=== PATIENT | female | born 1940 | race Caucasian/White ===

== ENCOUNTER 2024-03-22 19:55 | Observation (INO) | payer MEDICARE, OTHER, SELFPAY ==
[2024-03-22] VITALS (9 sets, daily range): BP systolic 113–175; BP diastolic 59–89; BMI 28.2
--- NOTE | 2024-03-22 16:25 | ED.GENMED ---
History of Present Illness
General
Chief Complaint: Musculo-Skeletal Complaint
Source: patient
Exam Limitations: none
Time Seen by Provider: 03/22/24 15:58
Nursing documentation reviewed up to this point in time: agreed with
Travel History
Have you had any contact with someone who has COVID-19?: No
Do you have any symptoms of coronavirus? Fever > 100 degrees, chills, cough, shortness of breath, sore throat, loss of taste or smell, muscle aches, or headache?: No
History of Present Illness
History of Present Illness:
pt is a 83 y/o F with h/o parkinsons
snow birds [place], returned here a few days ago
fell while in [place], 03/12 back wards onto buttocks
went to an ER and had xrays and head ct which were neg
pt took the train back up to this area and went to PCP and got rx for motrin and methambutol
recently she seemed more weak and is having more pain and is really not able to get around. her is her primary caregiver and he has to assist her all the time to walk but she really hasn't had the energy and she has pain in both hips and
lower back
L hip > right hip
may have noticed facial drooping yesterday, but he did no tmention until i asked
no urinary symptoms (chronically wears depends), fever, vomiting, headache, cp, sob
she has had rehab before and is interested
Past History
Past History
ED Past Medical History: Cancer (Breast) and Other (Parkinson's, hiatal hernia)
ED Past Surgical History: Gynecological, Orthopedic and Other (lumpectomy w/ lymph node sx)
Social History
Tobacco: Other
Drug: None
Personal:
Living: with family
Employment: Retired
Family History
Family History: Other (n/c)
Review of Systems
Review of Systems
Allergies reviewed?: Yes
All Other Systems: Not applicable
Phy Exam
Physical Exam
Physical Exam:
GENERAL: Alert , in no apparent distress generally weak
HEAD: NCAT
EYE: pupils equal and reactive, no nystagmus, patient seems to have some lid lag on the left and does not squeeze her eyes tightly on the left
NECK: Supple,full rom, nontender
ENT: o/p clr, mmm.
CARDIAC: Regular rate and rhythm murmur present. no edema
LUNGS: Clear breath sounds bilaterally, no acute respiratory distress, no wheezes/rales/rhonchi
back: nontneder
posterior PSIS L with tenderness
ABDOMEN: Soft, without focal tenderness, no r/g, no cvat
NEUROLOGICAL: Alert and orientedx 4, flattened nasolabial fold on the right with a slight downward appearance to her corner of her mouth on the right side, left eye is minimally weak, seems to be sluggish with blinking, 5/5 strength in UE/LE,
sensation intact, romberg neg, globally weak but no focal weakness in her arms or legs, neg pronator drift
SKIN: Warm and dry, skin intact. No bruising appreciated
MUSCULOSKELETAL: No edema, well perfused.
PSYCH: Normal and appropriate interaction.
Course
Orders/Labs/Results
Orders:
Orders
03/22/24 16:17
CT Pelvis W/o Iv Contrast Urgent
Comment:
Reason For Exam: fall 03/12 b/l hip pain, neg xrays, cannot walk
03/22/24 16:19
CT Head W/o Iv Contrast Urgent
Comment:
Reason For Exam: R facial weakness, falls
Urinalysis Reflex To Culture Urgent
03/22/24 16:20
Electrocardiogram (*1) Urgent
Reason for Study: Fatigue / Weakness
EKG- Treatment ONCE
0.9% Sodium Chloride 1000 ml [Nss] 1,000 ml IV BOLUS
03/22/24 16:38
Complete Blood Count/With Diff Urgent
Comprehensive Metabolic Panel Urgent
Magnesium Urgent
TSH Reflex To Free T4 Urgent
Abnormal Lab Results
03/22/24
16:38
MCH 31.4 H pg
(27.0-31.0)
Abs Immat Gran (auto) 0.1 H 10^3/uL
(0-0.05)
Absolute Neuts (auto) 8.1 H 10^3/uL
(1.4-6.5)
Absolute Monos (auto) 1.0 H 10^3/uL
(0.1-0.6)
Immature Gran % 0.6 H %
(0-0.5)
Lymphocytes % 13.3 L %
(20.5-51.1)
Chloride 110 H mmol/L
(98-107)
BUN 26 H mg/dl
(7-17)
Alkaline Phosphatase 183 H U/L
(38-126)
03/22/24 16:38
03/22/24 16:38
Vital Signs
Initial and Last Documented VS:
Initial Vital Signs
Temp Pulse Resp BP Pulse Ox
97.7 F 79 18 113/59 94
03/22/24 14:15 03/22/24 14:15 03/22/24 14:15 03/22/24 14:15 03/22/24 14:15
Last Documented Vital Signs
Temp Pulse Resp BP Pulse Ox
97.7 F 79 30 174/71 96
03/22/24 14:15 03/22/24 18:45 03/22/24 18:45 03/22/24 18:00 03/22/24 18:45
MDM/Problems Addressed
Differential Diagnosis Includes:
fracture, weakness, sroke, dehydration, parkinsons
MDM/Problems Addressed:
83 y/o F with parkinsons
here after falling on 03/12 in [place] and having ongoing issues walking, b/l hip pain and low back pain
had xrays and were told they were negative
but she really cannot walk even close to her baseline which already requires her 's assistnace
she has no focal weakness
on exam i thought i noticed a facial droop but probably difficult to tell because of her parkinsons
her then said maybe he noticed too
she has no focal weaknes in arms or legs
her facial muscles seem somewhat weak
no midline spinal tenderness
no signs of cauda equina
she does have pain more with L hip flexion
labs apprecaited, no singinciatn findings
ct shows L4 acute compression fx
pt will likely need inpatient rehab
*Critical Care Note
Total Time (30-74mins, 75-104mins- exclusive of procedures): Not Applicable
ED Attending Note
-
Portions of this chart may have been created with voice recognition software.� Occasional wrong word or��sound alike� substitutions may have occurred due to the inherent limitations of voice recognition software.
Discharge Plan
Departure
Patient Disposition: Admit
Date of Disposition: 03/22/24
Time of Disposition: 18:22
Admit to: Med/Surg
Presentation/result/management discussed w/ accepting MD/DO: Hospitalist
Condition: Fair
Covid-19: Not Applicable
Discharge Problem:
Closed compression fracture of L4 vertebra, Ambulatory dysfunction, Dehydration
Prescriptions:
No Action
calcium carbonate [Oyster Shell Calcium 500] 500 MG tablet
1 tab PO DAILY
coenzyme Q10 [Co Q-10] 100 mg Capsule
100 mg PO DAILY Qty: 0
multivitamin with folic acid [Tab-A-Avelino] 1 TABLET tablet
1 tab PO DAILY
carbidopa-levodopa 25-100 mg tablet
1 tab PO Q4
cholecalciferol (vitamin D3) [Vitamin D3] 25 mcg (1,000 unit) Tablet
25 mcg PO DAILY
[place] 3 Fish Oil 948-1,200 mg Capsule,Delayed Release(Dr/Ec)
1 cap PO DAILY
magnesium glycinate 100 mg Tablet
100 mg PO DAILY
Curcumin
1 tab PO DAILY
glutathione
1 tab PO DAILY
Referrals:
Irma Galicia MD [Family Provider] -
Interventions
Interventions:
*Risk Screen - Suicide Last Done: 03/22/24 14:15
*General Assessment Last Done: 03/22/24 14:15
*Neglect/Abuse Screening Last Done: 03/22/24 14:15
*ED COVID-19 Vaccine History Last Done: 03/22/24 14:15
ED-Musculoskeletal Assessment Last Done: 03/22/24 14:17
Discharge Date and Time
Print Language: MACANESE
[2024-03-22] MEDS: NSS 1000 IV (16:39)
[2024-03-22 16:49] LABS: % Basophils 0.4 % (0-2); % Eosinophils 1.9 % (0-6); % Immature Granulocytes 0.6 % (0-0.5); % Lymphocytes 13.3 % (20.5-51.1); % Monocytes 9.1 % (1.7-9.3); % Neutrophils 74.7 % (42.2-75.2); Absolute Eosinophils 0.2 10^3/uL (0-0.7); Absolute Immature Granulocytes 0.1 10^3/uL (0-0.05); Absolute Lymphocytes 1.4 10^3/uL (1.2-3.4); Absolute Neutrophils 8.1 10^3/uL (1.4-6.5); Hematocrit 42.6 % (37.0-47.0); Hemoglobin 14.6 g/dL (12.0-16.0); Mean Corp Hgb Conc. 34.3 g/dL (33.0-37.0); Mean Corpuscular Hgb 31.4 pg (27.0-31.0); Mean Corpuscular Volume 91.6 fL (81.0-99.0); Mean Platelet Volume 9.3 fL (7.4-10.4); Nucleated Red Blood Cells % 0 %; Platelet Count 270 10^3/uL (130-400); Red Blood Cell Count 4.65 10^6/uL (4.20-5.40); Red Cell Dist. Width 13.4 % (11.5-14.5); White Blood Cell Count 10.8 10^3/uL (4.8-10.8)
[2024-03-22 17:09] LABS: ALT (SGPT) < 10 U/L (0-35); AST (SGOT) 24 U/L (14-36); Alkaline Phosphatase 183 U/L (38-126); Blood Urea Nitrogen 26 mg/dl (7-17); Carbon Dioxide 24 mmol/L (22-30); Chloride 110 mmol/L (98-107); Estimated Creatinine Clearance 50 ml/min; Glucose 94 mg/dl (70-99); Magnesium 2.3 mg/dl (1.6-2.3); Potassium 4.1 mmol/L (3.5-5.1); Sodium 141 mmol/L (135-145); Total Bilirubin 0.6 mg/dl (0.2-1.3); Total Protein 6.6 g/dl (6.3-8.2); eGFR > 60.00
[2024-03-22 17:38] LABS: TSH Reflex To Free T4 0.77 uIU/ml (0.47-4.68)
--- NOTE | 2024-03-22 18:44 | HPS.HSE ---
Addendum entered and electronically signed by Julian Palmer DO 03/22/24 20:51:
Patient seen and examined independently. Agree with findings and plan as set forth by WILIAM Syed.
Patient is an 83y F with PMH significant for Parkinson's disease, hyperparathyroidism and breast cancer who presents to ED complaining of low back and buttocks pain and worsening gait dysfunction. Patient states that she had a fall on 03/12 while
in [place]. She went to sit on her walker chair but missed and 'sat down hard' on the floor. No head injury, LOC, suspicious prodrome, etc. Patient has had persistent pain since that time. Her has used a wheelchair for her locomotion
since that time as he was concerned she would fall again. At baseline, she ambulates with a walker.
Today, patient went to see her PCP but was unable to get into the office due to lower extremity weakness. EMS was called and patient was brought to the ED for evaluation.
Work-up in the ED revealed acute L4 compression fracture.
Ass:
L4 Compression Fracture s/p Fall
Low Back Pain secondary to the above
Ambulatory Dysfunction - acute on chronic - secondary to the above
Parkinson's Disease
Hyperparathyroidism
Osteoporosis
Plan:
Observe overnight for further evaluation and treatment.
Continue efforts at adequate pain control.
PT / OT evals in the AM.
Could consider vertebroplasty if pain is unable to be controlled.
Continue outpatient med regimen including usual Sinemet dosing.
Follow for clinical improvement.
Original Note:
Family Physician
-
Family Physician: Irma Galicia
Chief Complaint
-
fall with buttocks pain
History of Present Illness
83 year old with PMH for right breast ca, hld, Parkinson disease, hyperparathyroidism, macular degeneration presented to us with b/l buttocks pain after fall on 03/12.she missed the walker in the bathroom and fell on her right buttocks. she did not
hit her head. since then she has bilateral buttocks pain. she was evaluated in the ER. workups were negative for any fracture, she was sent home on muscle relaxant. they travelled from [place] to [place] via train on 03/18. her pain got worse and noted
very weak. today they were going to see her PCP, she could not get to the car. she could not lift her leg up due to the pain. her called 911 and brought to the ER. patient denied [place],dizzy or syncopal episode. denied fever, chills, chest
pain, sob. denied abdominal pain,n,v,d. denied dysuria or hematuria.
CT lumbar with Compression fracture involving the L4 vertebral body, and morphologically, this is likely an acute fracture. Slight retropulsion of the posterior and superior aspect of the L4 vertebral body, extending into the spinal canal. received
normal saline in ER. admitting for further management.
Medical History
Past Medical History
Past Medical History: Reports Other
Additional Past Medical History:
Right breast cancer
Thyroid nodule
Hyperlipidemia
Hearing loss
Vitamin D deficiency
Osteoporosis
Parkinson disease
Hyperparathyroidism
macular degeneration
Hiatal hernia
Past Surgical History: Reports Other
Additional Past Surgical History:
Right breast lumpectomy
Tone left rotator cuff
Left ovary removed
Social History
Tobacco: Non-smoker
Alcohol: None
Drug: None
Personal:
Living: With Family
Family History
Family History: Not pertinent
Allergies / Home Medications
Allergies reflects when Allergies were last updated in [employer].
Home Medications with original date entered in [employer]
Allergy/Medication List:
Allergies
Allergy/AdvReac Type Severity Reaction Status Date / Time
amoxicillin [Amoxicillin] Allergy Rash Verified 10/14/21 16:32
amoxicillin trihydrate Allergy Rash Verified 10/14/21 16:32
[From Augmentin]
clavulanic acid Allergy Rash Verified 10/14/21 16:32
[From Augmentin]
doxycycline Allergy Rash, sun Verified 10/14/21 16:32
sensitivity,
thrush,
erythromycin base Allergy Unknown Verified 10/14/21 16:32
levofloxacin Allergy Unknown Verified 10/14/21 16:32
Home Medications
calcium carbonate (Oyster Shell Calcium 500) 1 tab PO DAILY Supplement 10/14/21
coenzyme Q10 100 mg capsule (Co Q-10) 100 mg PO DAILY Supplement ##0 10/14/21
multivitamin with folic acid 400 mcg tablet (Tab-A-Avelino) 1 tab PO DAILY Supplement 10/14/21
Curcumin 1 tab PO DAILY 03/22/24
carbidopa 25 mg-levodopa 100 mg tablet 1 tab PO Q4 03/22/24
cholecalciferol (vitamin D3) 25 mcg (1,000 unit) tablet (Vitamin D3) 25 mcg PO DAILY 03/22/24
glutathione 1 tab PO DAILY 03/22/24
magnesium glycinate 100 mg tablet 100 mg PO DAILY 03/22/24
omega-3 fatty acids-fish oil 684 mg-1,200 mg capsule,delayed release 1 cap PO DAILY 03/22/24
Review of Systems
-
Constitutional: Reports No Symptoms
EENT: Reports No Symptoms
Respiratory: Reports No Symptoms
Cardiac: Reports No Symptoms
Abdomen/GI: Reports No Symptoms
: Reports No Symptoms
Musculoskeletal: Reports Other (Bilateral buttocks pain)
Skin: Reports No Symptoms
Neurological: Reports No Symptoms
Endocrine: Reports No Symptoms
Hematologic/Lymphatic: Reports No Symptoms
Psych: Reports No Symptoms
Physical Exam
Vital Signs
Vital Signs
Temp Pulse Resp BP Pulse Ox
97.7 F 79 18 113/59 94
03/22/24 14:15 03/22/24 14:15 03/22/24 14:15 03/22/24 14:15 03/22/24 14:15
Physical Exam
General: Well Developed, Well Nourished and No Apparent Distress
HEENT: NormoCephalic, Moist mucous membranes and Atraumatic
Respiratory: Clear
Cardiac: S1/S2 and Regular Rhythm; No Murmur or Rub
GI: Soft, Non Tender, Non Distended and Normal Bowel Sounds; No Organomegaly
Rectal: Deferred by Provider
Musculoskeletal: No Clubbing, No Cyanosis and No Edema
Skin: No Rash
Neuro: AO x 3 and Nonfocal/grossly intact
Psych: Calm
Laboratory Results
-
03/22/24 16:38
03/22/24 16:38
Laboratory Results
Total Bilirubin 0.6 mg/dl (0.2-1.3) 03/22/24 16:38
AST 24 U/L (14-36) 03/22/24 16:38
ALT < 10 U/L (0-35) 03/22/24 16:38
Alkaline Phosphatase 183 U/L (38-126) H 03/22/24 16:38
Data Reviewed
-
CT Scan: Report Reviewed by me
Lab Data: Labs Reviewed by me
Impression/Plan
-
# Lower back and hip pain likely from acute L4 compression fracture
-CT head negative
-Pelvis CT with impression of Compression fracture involving the L4 vertebral body, and morphologically, this is likely an acute fracture. Slight retropulsion of the posterior and superior aspect of the L4 vertebral body, extending into the spinal
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 Given this limitation, no convincing evidence for additional fracture.
-lidocaine patch
-tramadol prn for pain
-PT/OT consult
#Parkinson's Disease
-Carbidopa levodopa continued
#DVT Prophylaxis: Lovenox
#Code Status: Full
[2024-03-22] MEDS: SINEMET 25-100 1 TABLET PO (21:46)
[2024-03-22] MEDS: LIDOCAINE 4% PATCH 1 PATCH TOPICAL (21:47)
[2024-03-23] MEDS: SINEMET 25-100 1 TABLET PO ×5 (01:08→21:24)
[2024-03-23 01:33] LABS: Urine Albumin Negative (Neg - Trace); Urine Bilirubin Negative (Negative); Urine Character Clear (Clear); Urine Color Yellow; Urine Glucose Negative (Negative); Urine Ketone Trace (Negative); Urine Leukocyte 1+ (Negative); Urine Nitrite Negative (Negative); Urine Occult Blood Negative (Negative); Urine Specific Gravity 1.015 (<1.030); Urine Urobilinogen Negative (Neg - 1+)
[2024-03-23 02:01] LABS: Urine Bacteria Many (Negative); Urine White Cell 16-20 /HPF (0-5)
[2024-03-23] MEDS: TYLENOL 650 MG PO ×2 (02:51→08:00)
[2024-03-23] MEDS: SINEMET 25-100 PO ×2 (04:31→23:41)
[2024-03-23 06:45] LABS: Hemoglobin 13.3 g/dL (12.0-16.0); Mean Corp Hgb Conc. 34.1 g/dL (33.0-37.0); Mean Corpuscular Hgb 32.2 pg (27.0-31.0); Mean Corpuscular Volume 94.4 fL (81.0-99.0); Mean Platelet Volume 9.7 fL (7.4-10.4); Platelet Count 224 10^3/uL (130-400); Red Blood Cell Count 4.13 10^6/uL (4.20-5.40); Red Cell Dist. Width 13.3 % (11.5-14.5); White Blood Cell Count 7.8 10^3/uL (4.8-10.8)
[2024-03-23 07:00] VITALS: BP 150/76
[2024-03-23 07:11] LABS: Blood Urea Nitrogen 19 mg/dl (7-17); Calcium 9.3 mg/dl (8.4-10.2); Carbon Dioxide 24 mmol/L (22-30); Chloride 113 mmol/L (98-107); Estimated Creatinine Clearance 57 ml/min; Glucose 93 mg/dl (70-99); Potassium 3.9 mmol/L (3.5-5.1); Sodium 142 mmol/L (135-145); eGFR > 60.00
--- NOTE | 2024-03-23 08:34 | W.PN.HOSP.TC ---
Today's Communication/Plan
-
Continue pain control. PT OT eval
Assessment / Plan
Assessment / Plan
Physical Exam
General: Appears chronically ill
HEENT: NormoCephalic, Moist mucous membranes and Atraumatic
Respiratory: Clear
Cardiac: S1/S2 and Regular Rhythm; No Murmur or Rub
GI: Soft, Non Tender, Non Distended and Normal Bowel Sounds; No Organomegaly
Rectal: Deferred by Provider
Musculoskeletal: Tenderness in the lumbar area. Decreased range of motion of the back. No Clubbing, No Cyanosis and No Edema
Skin: No Rash
Neuro: AO x 3 and Nonfocal/grossly intact
Psych: Calm
A/P:
# Lower back and hip pain likely from acute L4 compression fracture
-CT head negative
-Pelvis CT with impression of Compression fracture involving the L4 vertebral body, and morphologically, this is likely an acute fracture. Slight retropulsion of the posterior and superior aspect of the L4 vertebral body, extending into the spinal
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 Given this limitation, no convincing evidence for additional fracture.
-lidocaine patch
-tramadol prn for pain
-PT/OT consult
#Parkinson's Disease
-Carbidopa levodopa continued
#DVT Prophylaxis: Lovenox
#Code Status: Full
Anticipated Discharge: 24 - 48 hours
Subjective/Interval History
-
Date of Service: March 23, 2024
Patient proceeded to have back pain. She states pain is moderate and does have some relief with pain medications. Has not been able to ambulate much yet. No chest pain or shortness of breath. No fevers or chills. No bowel or bladder
incontinence.
Objective Data
-
Labs:
Laboratory Results
03/23/24
06:23
WBC 7.8
Hgb 13.3
Hct 39.0
Plt Count 224
Sodium 142
Potassium 3.9
Chloride 113 H
Carbon Dioxide 24
BUN 19 H
Creatinine 0.7
Glucose 93
Calcium 9.3
Vital Signs:
Vital Signs
Temp Pulse Resp BP Pulse Ox
97.4 F 73 18 150/76 95
03/23/24 07:00 03/23/24 07:00 03/23/24 07:00 03/23/24 07:00 03/23/24 07:00
Review of Systems
-
All other systems: Reviewed and negative
[2024-03-23 10:29] VITALS: BP 106/54; BP 95/56; PULSE 87
[2024-03-23 14:51] VITALS: BP 122/68
--- NOTE | 2024-03-23 15:46 | CM ---
CM met with pt bedside
Pt resides with her spouse in a 2SH with 4STE, 1st floor setup
Pt is independent with ambulation, transfers and toileting with use if a rollator
Spouse assists with dressing and bathing as needed
PCP- Irma Galicia
Rx- [facility]
Pt is OBS- [place] verbally reviewed
Copy provided
SNF recommended by therapy
PAC provided- pt does not have qualifying stay
Pt requesting referral to [facility] acute rehab
Referral sent and pending
Pt does not qualify for [employer] waiver per Tonya- not in participating ACO
Discharge Disposition- SNF private pay vs [facility] acute rehab
[2024-03-23] MEDS: LIDOCAINE 4% PATCH 1 PATCH TOPICAL (21:24)
[2024-03-23 23:20] VITALS: BP 134/67
[2024-03-24] MEDS: SINEMET 25-100 1 TABLET PO ×5 (02:51→20:17)
[2024-03-24] MEDS: TYLENOL 650 MG PO ×2 (02:51→08:07)
[2024-03-24 07:19] LABS: Hematocrit 38.3 % (37.0-47.0); Hemoglobin 13.2 g/dL (12.0-16.0); Mean Corp Hgb Conc. 34.5 g/dL (33.0-37.0); Mean Corpuscular Hgb 31.7 pg (27.0-31.0); Mean Corpuscular Volume 92.1 fL (81.0-99.0); Mean Platelet Volume 9.5 fL (7.4-10.4); Platelet Count 238 10^3/uL (130-400); Red Blood Cell Count 4.16 10^6/uL (4.20-5.40); Red Cell Dist. Width 13.2 % (11.5-14.5); White Blood Cell Count 8.4 10^3/uL (4.8-10.8)
[2024-03-24 07:46] LABS: Blood Urea Nitrogen 19 mg/dl (7-17); Calcium 9.1 mg/dl (8.4-10.2); Carbon Dioxide 25 mmol/L (22-30); Chloride 110 mmol/L (98-107); Estimated Creatinine Clearance 57 ml/min; Glucose 93 mg/dl (70-99); Sodium 137 mmol/L (135-145); eGFR > 60.00
[2024-03-24 07:56] VITALS: BP 154/71
--- NOTE | 2024-03-24 09:26 | W.PN.HOSP.TC ---
Today's Communication/Plan
-
Continue current management. PT OT/CM
Assessment / Plan
Assessment / Plan
Physical Exam
General: Appears chronically ill
HEENT: NormoCephalic, Moist mucous membranes and Atraumatic
Respiratory: Clear
Cardiac: S1/S2 and Regular Rhythm; No Murmur or Rub
GI: Soft, Non Tender, Non Distended and Normal Bowel Sounds; No Organomegaly
Rectal: Deferred by Provider
Musculoskeletal: Tenderness in the lumbar area. Decreased range of motion of the back. No Clubbing, No Cyanosis and No Edema
Skin: No Rash
Neuro: AO x 3 and Nonfocal/grossly intact
Psych: Calm
A/P:
# Lower back and hip pain likely from acute L4 compression fracture
-CT head negative
-Pelvis CT with impression of Compression fracture involving the L4 vertebral body, and morphologically, this is likely an acute fracture. Slight retropulsion of the posterior and superior aspect of the L4 vertebral body, extending into the spinal
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 Given this limitation, no convincing evidence for additional fracture.
-lidocaine patch
-tramadol prn for pain--> needs to reevaluate if this is enough or we need to upgrade stronger medication
-PT/OT consult
-Case management for discharge disposition
-Updated at bedside
#Parkinson's Disease
-Carbidopa levodopa continued
#DVT Prophylaxis: Lovenox
#Code Status: Full
Anticipated Discharge: 24 - 48 hours
Subjective/Interval History
-
Date of Service: March 24, 2024
Patient still with some pain in the back. Afebrile
Objective Data
-
Labs:
Laboratory Results
03/24/24
06:44
WBC 8.4
Hgb 13.2
Hct 38.3
Plt Count 238
Sodium 137
Potassium 4.0
Chloride 110 H
Carbon Dioxide 25
BUN 19 H
Creatinine 0.7
Glucose 93
Calcium 9.1
Vital Signs:
Vital Signs
Temp Pulse Resp BP Pulse Ox
97.8 F 67 18 154/71 95
03/24/24 07:56 03/24/24 07:56 03/24/24 07:56 03/24/24 07:56 03/24/24 07:56
I&O
03/23/24 03/24/24 03/25/24
06:59 06:59 06:59
Intake Total 360 / 360
Output Total 200 / 200
Balance 160 / 160
[2024-03-24] MEDS: OCUVITE SOFTGEL 1 CAP PO ×2 (12:43→20:17)
[2024-03-24 15:39] VITALS: BP 148/76
[2024-03-24 16:07] VITALS: BP 141/65; BP 148/76; PULSE 84; O2SAT 93
[2024-03-24] MEDS: ULTRAM 100 MG PO (16:30)
[2024-03-24] MEDS: LIDOCAINE 4% PATCH 1 PATCH TOPICAL (20:18)
[2024-03-24 23:25] VITALS: BP 115/65
[2024-03-24] MEDS: SINEMET 25-100 PO (23:40)
[2024-03-25] MEDS: SINEMET 25-100 PO (04:42)
[2024-03-25] MEDS: SINEMET 25-100 1 TABLET PO ×5 (07:27→22:44)
[2024-03-25] MEDS: OCUVITE SOFTGEL 1 CAP PO ×2 (07:27→20:22)
[2024-03-25] MEDS: ULTRAM 100 MG PO (07:32)
[2024-03-25 07:58] VITALS: BP 151/81
--- NOTE | 2024-03-25 08:41 | W.PN.HOSP.TC ---
Today's Communication/Plan
-
Pain control. PT OT
Assessment / Plan
Assessment / Plan
Physical Exam
General: Appears chronically ill
HEENT: NormoCephalic, Moist mucous membranes and Atraumatic
Respiratory: Clear
Cardiac: S1/S2 and Regular Rhythm; No Murmur or Rub
GI: Soft, Non Tender, Non Distended and Normal Bowel Sounds; No Organomegaly
Rectal: Deferred by Provider
Musculoskeletal: Tenderness in the lumbar area. Decreased range of motion of the back. No Clubbing, No Cyanosis and No Edema
Skin: No Rash
Neuro: AO x 3 and Nonfocal/grossly intact. Increased tonicity on exam.
Psych: Calm
A/P:
# Lower back and hip pain likely from acute L4 compression fracture
-CT head negative
-Pelvis CT with impression of Compression fracture involving the L4 vertebral body, and morphologically, this is likely an acute fracture. Slight retropulsion of the posterior and superior aspect of the L4 vertebral body, extending into the spinal
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 Given this limitation, no convincing evidence for additional fracture.
-lidocaine patch
-tramadol prn for pain--> needs to reevaluate if this is enough or we need to upgrade stronger medication
-PT/OT consult
-Case management for discharge disposition
-Updated at bedside
#Parkinson's Disease
-Carbidopa levodopa continued
#DVT Prophylaxis: Lovenox
#Code Status: Full
Anticipated Discharge: 24 - 48 hours
Subjective/Interval History
-
Date of Service: March 25, 2024
Patient still with back pain but responds to pain medications, patient with generalized weakness and increased stiffness. No chest pain or shortness of breath. Afebrile
Objective Data
-
Vital Signs:
Vital Signs
Temp Pulse Resp BP Pulse Ox
97.5 F 79 16 151/81 94
03/25/24 07:58 03/25/24 07:58 03/25/24 07:58 03/25/24 07:58 03/25/24 07:58
I&O
03/24/24 03/25/24 03/26/24
06:59 06:59 06:59
Intake Total 360 / 360 900 / 900 240 / 240
Output Total 200 / 200
Balance 160 / 160 900 / 900 240 / 240
--- NOTE | 2024-03-25 09:54 | CM ---
Addendum entered by GENIA Chadwick 03/25/24 14:48:
Reviewed chart again, patient observation and will not have a 3 night qualifying stay through Medicare. Will send referrals to SNF and one to [facility] in the event that [facility] can't accommodate patient. If patient opts for SNF will need to privately
pay. Will provide explanation to patient regarding obs status.
Addendum entered by GENIA Chadwick 03/25/24 14:43:
Met with patient at her request. She stated that she would like to go to SNF as soon as possible. She was agreeable to referrals being sent to: [facility], [facility], [facility], [facility], [facility] and
[facility]. Will fax referrals through [employer].
Original Note:
Received call from admissions (Caroline) at [facility] who stated that she is in the process of reviewing patient's referral to determine if her facility can accept patient.
Plan: Case management will continue to follow and assist with discharge planning. Patient would like acute rehab at [facility]. Will await determination.
[2024-03-25 10:01] VITALS: BP 132/78; BP 136/70; O2SAT 93
[2024-03-25 10:02] VITALS: BP 132/78; BP 136/70
[2024-03-25 15:30] VITALS: BP 131/81
[2024-03-25] MEDS: LIDOCAINE 4% PATCH 1 PATCH TOPICAL (20:22)
[2024-03-25] MEDS: TUMS 1 TABLET PO (21:20)
[2024-03-25] MEDS: TYLENOL 650 MG PO (22:44)
[2024-03-25 23:30] VITALS: BP 116/55
[2024-03-26] MEDS: SINEMET 25-100 1 TABLET PO ×6 (05:19→23:02)
[2024-03-26] MEDS: TYLENOL 650 MG PO ×2 (07:42→20:25)
[2024-03-26] MEDS: OCUVITE SOFTGEL 1 CAP PO ×2 (07:43→19:55)
[2024-03-26 07:54] VITALS: BP 158/64
--- NOTE | 2024-03-26 08:54 | W.PN.HOSP.TC ---
Today's Communication/Plan
-
Continue pain control. PT OT. Discharge planning in progress
Assessment / Plan
Assessment / Plan
Physical Exam
General: Appears chronically ill
HEENT: NormoCephalic, Moist mucous membranes and Atraumatic
Respiratory: Clear
Cardiac: S1/S2 and Regular Rhythm; No Murmur or Rub
GI: Soft, Non Tender, Non Distended and Normal Bowel Sounds; No Organomegaly
Rectal: Deferred by Provider
Musculoskeletal: Tenderness in the lumbar area. Decreased range of motion of the back. No Clubbing, No Cyanosis and No Edema
Skin: No Rash
Neuro: AO x 3 and Nonfocal/grossly intact. Increased tonicity on exam.
Psych: Calm
A/P:
# Lower back and hip pain likely from acute L4 compression fracture
-CT head negative
-Pelvis CT with impression of Compression fracture involving the L4 vertebral body, and morphologically, this is likely an acute fracture. Slight retropulsion of the posterior and superior aspect of the L4 vertebral body, extending into the spinal
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 Given this limitation, no convincing evidence for additional fracture.
-lidocaine patch
-tramadol prn for pain--> needs to reevaluate if this is enough or we need to upgrade stronger medication
-PT/OT consult
-Case management for discharge disposition
-Updated at bedside
#Parkinson's Disease
-Carbidopa levodopa continued
#DVT Prophylaxis: Lovenox
#Code Status: Full
Anticipated Discharge: 24 - 48 hours
Subjective/Interval History
-
Date of Service: March 26, 2024
Patient pain in the back improving. No chest pain or shortness of breath. Afebrile
Objective Data
-
Vital Signs:
Vital Signs
Temp Pulse Resp BP Pulse Ox
97.9 F 72 18 158/64 93
03/26/24 07:54 03/26/24 07:54 03/26/24 07:54 03/26/24 07:54 03/26/24 07:54
I&O
03/25/24 03/26/24 03/27/24
06:59 06:59 06:59
Intake Total 900 / 900 240 / 240
Balance 900 / 900 240 / 240
--- NOTE | 2024-03-26 12:09 | CM ---
Chart reviewed. Patient not yet stable for discharge. SNF and Acute Rehab referrals pending. Patient will need to pay privately for SNF if unable to go to acute rehab due to OBS status. CM to follow.
[2024-03-26 12:24] VITALS: BP 129/51
[2024-03-26 15:52] VITALS: BP 146/61; PULSE 81; O2SAT 95
[2024-03-26 16:18] VITALS: BP 146/61
[2024-03-26] MEDS: LIDOCAINE 4% PATCH 1 PATCH TOPICAL (19:55)
[2024-03-26] MEDS: TUMS 1 TABLET PO (20:25)
[2024-03-26 23:00] VITALS: BP 109/55
[2024-03-27] MEDS: SINEMET 25-100 1 TABLET PO ×6 (03:56→23:22)
[2024-03-27] MEDS: TYLENOL 650 MG PO ×4 (04:47→20:11)
[2024-03-27 07:51] VITALS: BP 133/71
[2024-03-27] MEDS: OCUVITE SOFTGEL 1 CAP PO ×2 (08:48→20:11)
--- NOTE | 2024-03-27 09:01 | W.PN.HOSP.TC ---
Today's Communication/Plan
-
Pain control. Discharge planning in progress. systems project manager for discharge disposition.
Assessment / Plan
Assessment / Plan
Physical Exam
General: Appears chronically ill
HEENT: NormoCephalic, Moist mucous membranes and Atraumatic
Respiratory: Clear
Cardiac: S1/S2 and Regular Rhythm; No Murmur or Rub
GI: Soft, Non Tender, Non Distended and Normal Bowel Sounds; No Organomegaly
Rectal: Deferred by Provider
Musculoskeletal: Tenderness in the lumbar area improving. Decreased range of motion of the back. No Clubbing, No Cyanosis and No Edema
Skin: No Rash
Neuro: AO x 3 and Nonfocal/grossly intact. Increased tonicity on exam.
Psych: Calm
A/P:
# Lower back and hip pain likely from acute L4 compression fracture
-CT head negative
-Pelvis CT with impression of Compression fracture involving the L4 vertebral body, and morphologically, this is likely an acute fracture. Slight retropulsion of the posterior and superior aspect of the L4 vertebral body, extending into the spinal
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 Given this limitation, no convincing evidence for additional fracture.
-Continue lidocaine patch and acetaminophen
-tramadol prn for pain seems to be working
-PT/OT recommend skilled rehab
-Medically stable for discharge. Discussed with RN.
-Case management for discharge disposition
-Updated at bedside prior
#Parkinson's Disease
-Carbidopa levodopa continued
#DVT Prophylaxis: Lovenox
#Code Status: Full
Anticipated Discharge: 24 - 48 hours
Subjective/Interval History
-
Date of Service: March 27, 2024
Patient's back pain continues to improve. She is deconditioned and with generalized weakness. No chest pain or shortness of breath. Afebrile
Objective Data
-
Vital Signs:
Vital Signs
Temp Pulse Resp BP Pulse Ox
97.5 F 64 18 133/71 95
03/27/24 07:51 03/27/24 07:51 03/27/24 07:51 03/27/24 07:51 03/27/24 07:51
I&O
03/26/24 03/27/24 03/28/24
06:59 06:59 06:59
Intake Total 240 / 240 360 / 360
Balance 240 / 240 360 / 360
[2024-03-27] MEDS: MIRALAX 17 GRAMS PO (10:53)
[2024-03-27 12:14] VITALS: BP 137/72; PULSE 90; O2SAT 100
[2024-03-27 15:49] VITALS: BP 117/54
[2024-03-27] MEDS: LIDOCAINE 4% PATCH 1 PATCH TOPICAL (20:11)
[2024-03-27] MEDS: TUMS 1 TABLET PO (21:29)
[2024-03-27 22:55] VITALS: BP 136/67
[2024-03-28] MEDS: TYLENOL 650 MG PO ×4 (02:00→16:23)
[2024-03-28] MEDS: SINEMET 25-100 1 TABLET PO ×4 (04:51→16:22)
[2024-03-28] MEDS: ANESTHETIC LOZENGE 1 LOZENGE PO (05:40)
[2024-03-28 07:00] VITALS: BP 132/66
[2024-03-28] MEDS: OCUVITE SOFTGEL 1 CAP PO (08:22)
[2024-03-28 11:32] VITALS: BP 158/69; PULSE 97
[2024-03-28 11:33] VITALS: BP 158/69; PULSE 97
--- NOTE | 2024-03-28 12:49 | W.PN.HOSP.TC ---
Addendum entered and electronically signed by Mari Feldman MD 03/28/24 15:16:
total DC time 35 min
Original Note:
Today's Communication/Plan
-
see A/P
Assessment / Plan
Assessment / Plan
A/P:
# Lower back and hip pain likely from acute L4 compression fracture
CT head negative
Pelvis CT with impression of Compression fracture involving the L4 vertebral body, likely an acute fracture. Slight retropulsion of the posterior and superior aspect of the L4 vertebral body, extending into the spinal canal. Streak artifact from
bilateral hip replacements limits evaluation of the hips and inferior pelvic bones particularly. Given this limitation, no convincing evidence for additional fracture.
Continue lidocaine patch and acetaminophen
tramadol prn for pain seems to be working
PT/OT recommend skilled rehab
Medically stable for discharge. Discussed with RN.
Case management for discharge disposition
Updated at bedside prior
# Parkinson's Disease
Carbidopa levodopa continued
DVT Prophylaxis: Lovenox SQ
Code Status: Full
Anticipated Discharge: Within 24 hours
Subjective/Interval History
-
Date of Service: March 28, 2024
Objective Data
-
Vital Signs:
Vital Signs
Temp Pulse Resp BP Pulse Ox
36.4 C 66 18 132/66 93
03/28/24 07:00 03/28/24 07:00 03/28/24 07:00 03/28/24 07:00 03/28/24 07:00
I&O
03/27/24 03/28/24 03/29/24
06:59 06:59 06:59
Intake Total 360 / 360 400 / 400
Balance 360 / 360 400 / 400
Review of Systems
-
All other systems: Reviewed and negative
Physical Exam
-
General: Well Developed, Well Nourished, No Apparent Distress, Comfortable, Conversant and Appears Chronically Ill; Negative Respiratory Distress
HEENT: Normocephalic, Atraumatic, Nose Appears Normal and Ears Appear Normal; Negative Oxygen
Respiratory: Clear to Auscultation and Non Labored Respirations; Negative Accessory Resp Muscle Use
Cardiac: Regular Rhythm and S1/S2
GI: Soft, Nontender, Nondistended and Normal Bowel Sounds
Skin: Warm and Dry
Neuro: Awake, Alert and Other (parkinson's disease)
Psych: Calm
Data Reviewed
-
Labs: Labs Reviewed by me
--- NOTE | 2024-03-28 13:18 | CM ---
Addendum entered by Charmaine Bustamante 03/28/24 15:13:
This CM assisting with dc planning
Bed available at [facility] today
Bedside update to pt and call to to spouse with update
Pt remains OBS- no IMM issued
Discharge Disposition- [facility]
[phone] (p) [phone] (f)
Original Note:
Reviewed chart, placed a call to Guillermina at [facility] in admissions who reviewed patient and stated that she would be able to take her. She stated that she will call back with availability for today.
Plan: Case management will continue to follow and assist with discharge planning. [facility]. Will await return call from Guillermina.
[2024-03-28 15:00] VITALS: BP 137/80
--- NOTE | 2024-03-28 15:12 | W.DCSUMMARY ---
Discharge Summary
Discharge Data
Date of Admission: 03/22/24
Date of Discharge: 03/28/24
-
Pending Results: No
Hospital Course
Principal Diagnosis:
Lower back and hip pain due to acute L4 compression fracture.
Chronic Diagnoses:�
Parkinson's Disease on Carbidopa levodopa
hyperparathyroidism
breast cancer
Consultations:�
None
Procedures:�
None
Clinical course:�
This is a 83-year-old female, with past medical history as stated above, who presented with lower back pain that is worse with ambulation. Patient stated that she had a fall on 03/12 while in [place].
Problem 1:
Lower back and hip pain due to acute L4 compression fracture.
Her pain was much improved following tramadol, which she had not required for several days during her hospital stay.
She can continue with lidocaine patch and acetaminophen as needed for pain control going forward.
She was discharged to [facility] per PT OT recommendation.
As for the rest of her medical problems, they were stable during her hospital stay.
Discharge Plan
-
Patient Disposition: Acute Rehab Facility
Discharge Diagnosis/Procedures: Lower back and hip pain likely from acute L4 compression fracture; Parkinson's Disease
Condition: Fair
Diet: As tolerated
Activity: As tolerated
Driving Restrictions: No driving
Referrals:
Irma Galicia MD [Family Provider] - in less than 1 week
Additional Discharge Medication Instructions: Continue Tylenol and lidocaine patch for pain control
Prescriptions:
New
acetaminophen 325 mg Tablet
650 mg PO Q4HPRN PRN (Reason: mild pain/[place]/temp> 100.4F) Qty: 30 0RF
lidocaine 4 % Adhesive Patch,Medicated
1 patch topical DAILY@2200 Qty: 30 0RF
Continued
calcium carbonate [Oyster Shell Calcium 500] 500 MG tablet
1 tab PO DAILY
coenzyme Q10 [Co Q-10] 100 mg Capsule
100 mg PO DAILY Qty: 0
multivitamin with folic acid [Tab-A-Avelino] 1 TABLET tablet
1 tab PO DAILY
carbidopa-levodopa 25-100 mg tablet
1 tab PO Q4
cholecalciferol (vitamin D3) [Vitamin D3] 25 mcg (1,000 unit) Tablet
25 mcg PO DAILY
omega-3 fatty acids-fish oil 684-1,200 mg Capsule,Delayed Release(Dr/Ec)
1 cap PO DAILY
magnesium glycinate 100 mg Tablet
100 mg PO DAILY
Curcumin
1 tab PO DAILY
glutathione
1 tab PO DAILY
PreserVision AREDS-2 250-90-40-1 mg Capsule
1 tab PO BID
Discharge Orders:
Discharge Patient (As Directed); Ordered 03/28/24
Ordered By: Mari Feldman
Discharge Date and Time
Print Language: JAPANESE
== END 2024-03-28 18:23 ==
LOC: 3 WEST ACU 19:55
PROVIDERS: Hospitalist; Physician Assistant; Registered Nurse; ADMITTING PHYSICIAN Hospitalist; ATTENDING PHYSICIAN Internal Medicine; EMERGENCY PHYSICIAN Emergency Medicine; FAMILY PHYSICIAN Internal Medicine Endocrinology, Diabetes & Metabolism
DX: M54.50 Low back pain, unspecified (principal); R53.1 Weakness; M25.551 Pain in right hip; M25.552 Pain in left hip; M80.08XA Age-related osteoporosis with current pathological fracture, vertebra(e), initial encounter for fracture; G20.A1 Parkinson's disease without dyskinesia, without mention of fluctuations; R29.810 Facial weakness; E04.1 Nontoxic single thyroid nodule; E78.5 Hyperlipidemia, unspecified; H91.90 Unspecified hearing loss, unspecified ear; H35.30 Unspecified macular degeneration; K44.9 Diaphragmatic hernia without obstruction or gangrene; E86.0 Dehydration; R26.2 Difficulty in walking, not elsewhere classified; E21.3 Hyperparathyroidism, unspecified; W01.0XXA Fall on same level from slipping, tripping and stumbling without subsequent striking against object, initial encounter; Y93.89 Activity, other specified; Y92.89 Other specified places as the place of occurrence of the external cause; Z85.3 Personal history of malignant neoplasm of breast; Z88.1 Allergy status to other antibiotic agents; Z88.0 Allergy status to penicillin; Z96.643 Presence of artificial hip joint, bilateral
CPT/HCPCS: 70450; 72192; 80048; 80053; 81003; 81015; 83735; 84443; 85025; 85027; 87086; 87088; 87186; 93005; 96360; 97116; 97163; 97167; 97530; 97535; 99285; G0378

== ENCOUNTER 2024-04-18 03:21 | Emergency (ER) | payer MEDICARE, OTHER, SELFPAY ==
[2024-04-18 03:26] VITALS: BP 176/80
[2024-04-18 06:13] VITALS: BP 142/59
--- NOTE | 2024-04-18 07:05 | ED.GENMED ---
History of Present Illness
General
Chief Complaint: Extremity Pain (non-traumatic)
Source: patient
Exam Limitations: none
Time Seen by Provider: 04/18/24 06:15
Nursing documentation reviewed up to this point in time: agreed with
Travel History
Have you had any contact with someone who has COVID-19?: No
Do you have any symptoms of coronavirus? Fever > 100 degrees, chills, cough, shortness of breath, sore throat, loss of taste or smell, muscle aches, or headache?: No
History of Present Illness
History of Present Illness:
Patient presents to ED secondary to persistent right hand pain over the past 24 hours. Patient states that her hand started to hurt when he she was holding onto the wheelchair that she was using. Denies direct trauma. Denies loss of sensation or
weakness. Denies swelling. Denies bruising.
Past History
Past History
ED Past Medical History: Cancer (Breast) and Other (Parkinson's, hiatal hernia)
ED Past Surgical History: Gynecological, Orthopedic and Other (lumpectomy w/ lymph node sx)
Social History
Tobacco: Other
Drug: None
Personal:
Living: with family
Employment: Retired
Family History
Family History: Other (n/c)
Review of Systems
Review of Systems
Allergies reviewed?: Yes
All Other Systems: ROS reviewed and negative except as documented in HPI and ROS
Constitutional: Reports no symptoms
Musculoskeletal: Reports other (Hand pain)
Skin: Reports no symptoms
Neurological: Reports no symptoms; Denies weakness or numbness
Phy Exam
Physical Exam
Physical Exam:
Physical Exam
General: no apparent distress, not acutely ill. afebrile.
Head: nc/at. eomi
Neck: supple. normal range of motion
Neuro: alert and oriented. no focal neurological deficits
Skin: no rash
Psychiatric: well kept. interactive and cooperative
Extremities: no edema. no calf tenderness. mild right hand tenderness on volar surface along prox metacarpal (1st/2nd/3rd), without swelling/ecchymosis/erythema. wrist nontender, with normal range of motion.
Course
Orders/Labs/Results
Orders:
Orders
04/18/24 06:21
CR Hand - Right Min 3 Views Urgent
Comment:
Reason For Exam: mid palm pain
Vital Signs
Initial and Last Documented VS:
Initial Vital Signs
Temp Pulse Resp BP Pulse Ox
97.8 F 84 22 176/80 94
04/18/24 03:26 04/18/24 03:26 04/18/24 03:26 04/18/24 03:26 04/18/24 03:26
Last Documented Vital Signs
Temp Pulse Resp BP Pulse Ox
97.8 F 91 19 142/50 94
04/18/24 03:26 04/18/24 10:51 04/18/24 10:51 04/18/24 10:51 04/18/24 10:51
MDM/Problems Addressed
MDM/Problems Addressed:
X-ray: NAD.
History and exam consistent with likely mild nonspecific right hand pain from minor trauma, potentially from holding onto her wheelchair. Otherwise, I do not see any obvious evidence of trauma nor any neurological deficit. Will provide preformed
Velcro wrist splint for comfort, and will be discharged back to [facility].
*Critical Care Note
Total Time (30-74mins, 75-104mins- exclusive of procedures): Not Applicable
ED Attending Note
-
Portions of this chart may have been created with voice recognition software.� Occasional wrong word or��sound alike� substitutions may have occurred due to the inherent limitations of voice recognition software.
Discharge Plan
Departure
Patient Disposition: Home (Routine Discharge)
Date of Disposition: 04/18/24
Time of Disposition: 07:16
Patient with high blood pressure during this ER visit?: Yes
Discharge Problem:
Hand pain, right
Instructions: Muscle and Bone Pain (DC)
Prescriptions:
No Action
multivitamin with folic acid [Tab-A-Avelino] 1 TABLET tablet
1 tab PO DAILY
cholecalciferol (vitamin D3) [Vitamin D3] 25 mcg (1,000 unit) Tablet
25 mcg PO DAILY
omega-3 fatty acids-fish oil 684-1,200 mg Capsule,Delayed Release(Dr/Ec)
1 cap PO DAILY
acetaminophen 325 mg Tablet
650 mg PO Q4HPRN PRN (Reason: mild pain/[place]/temp> 100.4F) Qty: 30 0RF
Chloraseptic Sore Throat 6-10 mg Lozenge
1 amanda PO Q4HPRN PRN (Reason: sore throat) 30 Days Qty: 18 0RF
docusate sodium 100 mg Capsule
100 mg PO BID 30 Days Qty: 60 0RF
carbidopa-levodopa 25-100 mg Tablet
1.5 tab PO Q6 30 Days Qty: 180 0RF
bisacodyl 10 mg Suppository
10 mg NM HSPRN PRN (Reason: if no BM with oral bisacodyl) 30 Days Qty: 30 0RF
bisacodyl 5 mg Tablet,Delayed Release (Dr/Ec)
10 mg PO DAILYPRN PRN (Reason: constipation) 30 Days Qty: 60 0RF
heparin (porcine) 5,000 unit/mL Solution
5,000 unit SC Q12 30 Days Qty: 60 0RF
magnesium L-lactate 84 mg Tablet Extended Release
84 mg PO DAILY 30 Days Qty: 30 0RF
guaifenesin 600 mg Tablet Extended Release 12hr
600 mg PO Q12 30 Days Qty: 60 0RF
calcium carbonate [Oyster Shell Calcium 500] 500 mg calcium (1,250 mg) Tablet
500 mg PO DAILY 30 Days Qty: 30 0RF
Ocuvite Adult 50 Plus 250 mg (90 mg-160 mg) Capsule
1 cap PO BID 30 Days Qty: 60 0RF
Non-Formulary Item
1 drp ophthalmic (eye) DAILY PRN (Reason: patient's own medication for eyes) 30 Days Qty: 1 0RF
quetiapine 25 mg Tablet
25 mg PO DAILY@1999 30 Days Qty: 30 0RF
tramadol 50 mg Tablet
25 mg PO Q6HPRN PRN (Reason: severe pain) 3 Days Qty: 10 0RF
pantoprazole 20 mg Tablet,Delayed Release (Dr/Ec)
20 mg PO DAILY 30 Days Qty: 30 0RF
alprazolam 0.25 mg Tablet
0.25 mg PO [id number] PRN (Reason: Anxiety) 3 Days Qty: 6 0RF
lidocaine 4 % Adhesive Patch,Medicated
1 patch topical DAILY@0 Qty: 30 0RF
Referrals:
Garrett Bullock DO [Family Provider] -
Activity Restrictions/Additional Instructions:
As discussed, you are being discharged back to [facility] for continual care. In ED, x-ray did not reveal any acute abnormalities. Your symptoms may be secondary to recent use of wheelchair and pressure applied as a result of it. Please utilize
provided splint for comfort along with ice.
Interventions
Interventions:
*Risk Screen - Suicide Last Done: 04/18/24 03:26
*General Assessment Last Done: 04/18/24 06:19
*Neglect/Abuse Screening Last Done: 04/18/24 03:26
ED- Fall Risk Assessment Last Done: 04/18/24 06:19
*ED COVID-19 Vaccine History Last Done: 04/18/24 06:19
*Nursing Disposition Last Done: 04/18/24 10:54
ED-Skin Assessment Last Done: 04/18/24 06:19
ED-Peripheral Vascular Assessment Last Done: 04/18/24 08:50
ED-Musculoskeletal Assessment Last Done: 04/18/24 06:19
Discharge Date and Time
Discharge Date/Time: 04/18/24 10:55
Print Language: CITIZEN OF [place]
[2024-04-18 10:51] VITALS: BP 142/50
== END 2024-04-18 10:55 | disposition home or self-care (01) ==
LOC: EMR 03:21
PROVIDERS: EMERGENCY PHYSICIAN Emergency Medicine; FAMILY PHYSICIAN Student in an Organized Health Care Education/Training Program
DX: M79.641 Pain in right hand (principal); R03.0 Elevated blood-pressure reading, without diagnosis of hypertension
CPT/HCPCS: 99283; 29125; 73130

== ENCOUNTER → 2024-05-23 12:30 | Outpatient (REF) | payer MEDICARE, OTHER, SELFPAY ==
[2024-05-23 14:25] LABS: Glycohemoglobin (HgbA1c) 5.4 % (4.0-5.6)
[2024-05-23 14:58] LABS: ALT (SGPT) < 10 U/L (0-35); AST (SGOT) 23 U/L (14-36); Albumin 4.1 g/dl (3.5-5.0); Alkaline Phosphatase 155 U/L (38-126); Alkaline Phosphatase, Total 155 U/L (38-126); Blood Urea Nitrogen 14 mg/dl (7-17); Calcium 10.1 mg/dl (8.4-10.2); Carbon Dioxide 25 mmol/L (22-30); Chloride 107 mmol/L (98-107); Glucose 92 mg/dl (70-99); HDL Cholesterol 67 mg/dl; LDL Cholesterol, Calculated 105 mg/dl; Potassium 4.1 mmol/L (3.5-5.1); Sodium 140 mmol/L (135-145); Total Bilirubin 0.9 mg/dl (0.2-1.3); Total Cholesterol 204 mg/dl (50-199); Total Protein 6.5 g/dl (6.3-8.2); Triglyceride 161 mg/dl (10-149); Very Low Density Lipoprotein 32 mg/dl (0-30); eGFR > 60.00
[2024-05-23 15:14] LABS: Vitamin D, 25-OH*** 42.6 ng/mL (30-80)
[2024-05-23 19:40] LABS: Alk Phos After Heat 27; Alkaline Phosphatase Percent 17.42
[2024-05-24 09:03] LABS: Intact PTH 54.4 pg/ml (13.6-85.8)
== END ==
LOC: REG 12:30
PROVIDERS: ATTENDING PHYSICIAN Family Medicine
DX: R74.8 Abnormal levels of other serum enzymes (principal); R73.01 Impaired fasting glucose; E55.9 Vitamin D deficiency, unspecified; E78.5 Hyperlipidemia, unspecified; E21.3 Hyperparathyroidism, unspecified
CPT/HCPCS: 36415; 80053; 80061; 82306; 83036; 83970; 84078

== ENCOUNTER → 2024-08-22 09:31 | Outpatient (REF) | payer MEDICARE, OTHER, SELFPAY ==
[2024-08-22 10:50] LABS: ALT (SGPT) < 10 U/L (0-35); AST (SGOT) 23 U/L (14-36); Albumin 4.1 g/dl (3.5-5.0); Alkaline Phosphatase 155 U/L (38-126); Alkaline Phosphatase, Total 155 U/L (38-126); Blood Urea Nitrogen 18 mg/dl (7-17); Calcium 10.3 mg/dl (8.4-10.2); Carbon Dioxide 26 mmol/L (22-30); Chloride 107 mmol/L (98-107); Glucose 93 mg/dl (70-99); Potassium 4.2 mmol/L (3.5-5.1); Sodium 143 mmol/L (135-145); Total Bilirubin 0.8 mg/dl (0.2-1.3); Total Protein 6.6 g/dl (6.3-8.2); eGFR > 60.00
[2024-08-22 11:16] LABS: TSH Reflex To Free T4 1.45 uIU/ml (0.47-4.68)
[2024-08-22 15:15] LABS: Alk Phos After Heat 125; Alkaline Phosphatase Percent 80.65
[2024-08-23 17:45] LABS: Intact PTH 40.4 pg/ml (13.6-85.8)
== END ==
LOC: REG 09:31
PROVIDERS: ATTENDING PHYSICIAN Family Medicine
DX: E21.3 Hyperparathyroidism, unspecified (principal); R74.8 Abnormal levels of other serum enzymes; S32.040D Wedge compression fracture of fourth lumbar vertebra, subsequent encounter for fracture with routine healing; M81.0 Age-related osteoporosis without current pathological fracture; U07.1 COVID-19
CPT/HCPCS: 36415; 80053; 83970; 84078; 84443

== ENCOUNTER → 2024-08-24 10:27 | Outpatient (REF) | payer MEDICARE, OTHER, SELFPAY | LOC: WDC 10:27 | PROVIDERS: ATTENDING PHYSICIAN Surgery; FAMILY PHYSICIAN Family Medicine | DX: N63.10 Unspecified lump in the right breast, unspecified quadrant (principal); N63.31 Unspecified lump in axillary tail of the right breast | CPT/HCPCS: 76642; 77062; 77066 ==

== ENCOUNTER → 2024-10-21 15:23 | Outpatient (REF) | payer MEDICARE, OTHER, SELFPAY ==
[2024-10-21 16:47] LABS: % Basophils 0.6 % (0-2); % Eosinophils 1.8 % (0-6); % Immature Granulocytes 0.3 % (0-0.5); % Monocytes 8.4 % (1.7-9.3); % Neutrophils 68.9 % (42.2-75.2); Absolute Eosinophils 0.1 10^3/uL (0-0.7); Absolute Lymphocytes 1.3 10^3/uL (1.2-3.4); Absolute Monocytes 0.6 10^3/uL (0.1-0.6); Absolute Neutrophils 4.5 10^3/uL (1.4-6.5); Hematocrit 44.3 % (37.0-47.0); Hemoglobin 14.8 g/dL (12.0-16.0); Mean Corp Hgb Conc. 33.4 g/dL (33.0-37.0); Mean Corpuscular Hgb 31.6 pg (27.0-31.0); Mean Corpuscular Volume 94.7 fL (81.0-99.0); Mean Platelet Volume 10.3 fL (7.4-10.4); Nucleated Red Blood Cells % 0 %; Platelet Count 245 10^3/uL (130-400); Red Blood Cell Count 4.68 10^6/uL (4.20-5.40); Red Cell Dist. Width 13.7 % (11.5-14.5); White Blood Cell Count 6.5 10^3/uL (4.8-10.8)
[2024-10-21 17:43] LABS: ALT (SGPT) < 10 U/L (0-35); AST (SGOT) 23 U/L (14-36); Albumin 4.2 g/dl (3.5-5.0); Alkaline Phosphatase 133 U/L (38-126); Blood Urea Nitrogen 22 mg/dl (7-17); Calcium 9.7 mg/dl (8.4-10.2); Carbon Dioxide 27 mmol/L (22-30); Chloride 106 mmol/L (98-107); Glucose 104 mg/dl (70-99); Potassium 4.3 mmol/L (3.5-5.1); Sodium 143 mmol/L (135-145); Total Bilirubin 0.5 mg/dl (0.2-1.3); Total Protein 6.7 g/dl (6.3-8.2); eGFR > 60.00
[2024-10-21 18:01] LABS: Intact PTH 72.5 pg/ml (13.6-85.8)
[2024-10-21 18:41] LABS: GGTP 32 U/L (12-43)
== END ==
LOC: REG 15:23
PROVIDERS: ATTENDING PHYSICIAN Family Medicine
DX: R74.8 Abnormal levels of other serum enzymes (principal)
CPT/HCPCS: 36415; 80053; 82977; 83970; 85025

== ENCOUNTER → 2024-10-27 09:21 | Outpatient (REF) | payer MEDICARE, OTHER, SELFPAY | LOC: HWRAD 09:21 | PROVIDERS: ATTENDING PHYSICIAN Physician Assistant; FAMILY PHYSICIAN Student in an Organized Health Care Education/Training Program | DX: E04.2 Nontoxic multinodular goiter (principal) | CPT/HCPCS: 76536 ==

== ENCOUNTER → 2024-12-21 15:30 | Outpatient (REF) | payer MEDICARE, OTHER, SELFPAY | LOC: HWRAD 15:30 | PROVIDERS: ATTENDING PHYSICIAN Family Medicine | DX: M54.50 Low back pain, unspecified (principal); M81.0 Age-related osteoporosis without current pathological fracture | CPT/HCPCS: 72110 ==

== ENCOUNTER → 2025-06-29 09:46 | Outpatient (REF) | payer MEDICARE, OTHER, SELFPAY ==
[2025-06-29 11:19] LABS: Hematocrit 43.5 % (37.0-47.0); Hemoglobin 14.6 g/dL (12.0-16.0); Mean Corp Hgb Conc. 33.6 g/dL (33.0-37.0); Mean Corpuscular Volume 94.6 fL (81.0-99.0); Nucleated Red Blood Cells % 0 %; Platelet Count 227 10^3/uL (130-400); Red Cell Dist. Width 13.7 % (11.5-14.5)
[2025-06-29 11:54] LABS: ALT (SGPT) < 10 U/L (0-35); AST (SGOT) 22 U/L (14-36); Albumin 4.4 g/dl (3.5-5.0); Alkaline Phosphatase 151 U/L (38-126); Blood Urea Nitrogen 19 mg/dl (7-17); Calcium 10.0 mg/dl (8.4-10.2); Carbon Dioxide 27 mmol/L (22-30); Chloride 109 mmol/L (98-107); Glucose 90 mg/dl (70-99); HDL Cholesterol 74 mg/dl; LDL Cholesterol, Calculated 115 mg/dl; Potassium 4.2 mmol/L (3.5-5.1); Sodium 143 mmol/L (135-145); Total Protein 6.8 g/dl (6.3-8.2); Very Low Density Lipoprotein 25 mg/dl (0-30); eGFR > 60.00
[2025-06-29 12:12] LABS: Vitamin D, 25-OH*** 44.0 ng/mL (30-80)
[2025-06-29 16:10] LABS: Glycohemoglobin (HgbA1c) 5.4 % (4.0-5.6)
== END ==
LOC: HWRAD 09:46
PROVIDERS: ATTENDING PHYSICIAN Student in an Organized Health Care Education/Training Program
DX: M81.0 Age-related osteoporosis without current pathological fracture (principal); R73.01 Impaired fasting glucose; E55.9 Vitamin D deficiency, unspecified; E78.5 Hyperlipidemia, unspecified
CPT/HCPCS: 36415; 77080; 80053; 80061; 82306; 83036; 85025

== ENCOUNTER 2025-10-31 12:18 | Observation (INO) | payer MEDICARE, OTHER, SELFPAY ==
[2025-10-31] VITALS (17 sets, daily range): BP systolic 114–157; BP diastolic 54–90; PULSE 86; O2SAT 95; BMI 23.8
--- NOTE | 2025-10-31 06:17 | ED.GENMED ---
History of Present Illness
<Laureano Pal PA-C - Last Filed: 10/31/25 09:08>
General
Chief Complaint: Fall
Time Seen by Provider: 10/31/25 06:04
History of Present Illness
History of Present Illness:
85-year-old female history of Parkinson's presents to the department for evaluation after a fall in her bathroom this morning. Has a history of frequent falls and ambulatory dysfunction, lost her balance when attempting to use the bathroom vanity
for support. She landed on her buttocks and did not strike her head. She was assisted to upright by her . She is currently complaining of low back and right gluteal pain. She is unable to bear weight on right lower extremity. Does not
take anticoagulants
Past History
<Laureano Pal PA-C - Last Filed: 10/31/25 09:08>
Past History
ED Past Medical History: Cancer (Breast) and Other (Parkinson's, hiatal hernia)
ED Past Surgical History: Gynecological, Orthopedic and Other (lumpectomy w/ lymph node sx)
Social History
Tobacco: Other
Drug: None
Personal:
Living: with family
Employment: Retired
Family History
Family History: Other (n/c)
Review of Systems
<Laureano Pal PA-C - Last Filed: 10/31/25 09:08>
Review of Systems
Allergies reviewed?: Yes
All Other Systems: ROS reviewed and negative except as documented in HPI and ROS
Phy Exam
<Laureano Pal PA-C - Last Filed: 10/31/25 09:08>
Physical Exam
Physical Exam:
GEN: Well appearing, NAD, WDWN
HEENT: Oral mucosa moist, no scleral icterus
Cardiac: Regular rate
Lung: No respiratory distress, no tachypnea
MSK: No gross deformity or injuries. Midline lumbar spine tenderness just superior to the sacrum without palpable deformity. No shortening or external rotation of bilateral lower extremities. Grossly nontender to palpation of the pelvis and hips
bilaterally
Skin: Good color, no pallor or jaundice, no rashes
Neuro: AO x3, moves all extremities freely
Psych: Calm, cooperative
Course
<Laureano Pal PA-C - Last Filed: 10/31/25 09:08>
Orders/Labs/Results
Orders:
Orders
10/31/25 06:15
CT Lumbar Spine W/o Iv Contras Urgent
Comment:
Reason For Exam: fall, low back pain
CT Pelvis W/o Iv Contrast Urgent
Comment:
Reason For Exam: fall, R buttock pain
Acetaminophen [Tylenol] 650 mg PO NOW STA
Ketorolac [Toradol] 15 mg IV NOW STA
10/31/25 06:43
Complete Blood Count/No Diff Urgent
Comprehensive Metabolic Panel Urgent
10/31/25 09:30
Case Management Consult ONCE
Case Management Consult: Discharge Planning
Comment: rehab; pelvis/lumbar fx's
PT Consult [Pt Eval And Treat] Urgent
Activity Level: With Assistance
Abnormal Lab Results
10/31/25
06:43
MCH 31.1 H pg
(27.0-31.0)
Chloride 109 H mmol/L
(98-107)
BUN 24 H mg/dl
(7-17)
Glucose 101 H mg/dl
(70-99)
Alkaline Phosphatase 164 H U/L
(38-126)
10/31/25 06:43
10/31/25 06:43
Vital Signs
Initial and Last Documented VS:
Initial Vital Signs
Temp Pulse BP Pulse Ox
36.4 C 69 136/71 96
10/31/25 04:40 10/31/25 04:40 10/31/25 04:40 10/31/25 04:40
Last Documented Vital Signs
Temp Pulse Resp BP Pulse Ox
36.6 C 78 16 146/80 97
10/31/25 08:34 10/31/25 08:34 10/31/25 08:34 10/31/25 08:34 10/31/25 08:36
<Porter Merino, DO - Last Filed: 10/31/25 09:34>
Orders/Labs/Results
Orders:
Orders
10/31/25 06:15
CT Lumbar Spine W/o Iv Contras Urgent
Comment:
Reason For Exam: fall, low back pain
CT Pelvis W/o Iv Contrast Urgent
Comment:
Reason For Exam: fall, R buttock pain
Acetaminophen [Tylenol] 650 mg PO NOW STA
Ketorolac [Toradol] 15 mg IV NOW STA
10/31/25 06:43
Complete Blood Count/No Diff Urgent
Comprehensive Metabolic Panel Urgent
10/31/25 09:30
Case Management Consult ONCE
Case Management Consult: Discharge Planning
Comment: rehab; pelvis/lumbar fx's
PT Consult [Pt Eval And Treat] Urgent
Activity Level: With Assistance
Abnormal Lab Results
10/31/25
06:43
MCH 31.1 H pg
(27.0-31.0)
Chloride 109 H mmol/L
(98-107)
BUN 24 H mg/dl
(7-17)
Glucose 101 H mg/dl
(70-99)
Alkaline Phosphatase 164 H U/L
(38-126)
10/31/25 06:43
10/31/25 06:43
Vital Signs
Initial and Last Documented VS:
Initial Vital Signs
Temp Pulse BP Pulse Ox
36.4 C 69 136/71 96
10/31/25 04:40 10/31/25 04:40 10/31/25 04:40 10/31/25 04:40
Last Documented Vital Signs
Temp Pulse Resp BP Pulse Ox
36.6 C 78 16 146/80 97
10/31/25 08:34 10/31/25 08:34 10/31/25 08:34 10/31/25 08:34 10/31/25 08:36
<Laureano Pal PA-C - Last Filed: 10/31/25 09:08>
MDM/Problems Addressed
MDM/Problems Addressed:
Imaging reveals new L2 compression fracture as well as a right pubic rami fracture and her ambulation is already quite compromised in the setting of Parkinson's, she is not suitable for discharge home. As such we will admit for further pain control
and therapy/placement considerations
<Laureano Pal PA-C - Last Filed: 10/31/25 09:08>
*Pulse Oximetry
SaO2: 92
Oxygen Mode of Delivery: Room air
Patient hypoxic: no
*Critical Care Note
Total Time (30-74mins, 75-104mins- exclusive of procedures): Not Applicable
ED Attending Note
<Laureano Pal PA-C - Last Filed: 10/31/25 09:08>
-
Portions of this chart may have been created with voice recognition software.� Occasional wrong word or��sound alike� substitutions may have occurred due to the inherent limitations of voice recognition software.
<Porter Merino DO - Last Filed: 10/31/25 09:34>
ED Attending Note
Patient seen and examined by attending physician: Yes
I performed the substantive portion of visit, reviewed & personally made and approve the management plan that is documented in note by myself or HECTOR.: Yes
ED Attending Note:
I evaluated the patient at bedside. The patient appears fairly comfortable but appears generally weak and debilitated. She denies any significant pain currently. Awaiting case management and physical therapy eval.
Discharge Plan
Departure
Patient Disposition: Admit
Date of Disposition: 10/31/25
Time of Disposition: 08:10
Admit to: Med/Surg
Presentation/result/management discussed w/ accepting MD/DO: Hospitalist
Discharge Problem:
Closed compression fracture of L2 vertebra, Closed fracture of right inferior pubic ramus
Prescriptions:
No Action
multivitamin with folic acid [Tab-A-Avelino] 1 TABLET tablet
1 tab PO DAILY
cholecalciferol (vitamin D3) [Vitamin D3] 25 mcg (1,000 unit) Tablet
25 mcg PO DAILY
omega-3 fatty acids-fish oil 684-1,200 mg Capsule,Delayed Release(Dr/Ec)
1 cap PO DAILY
acetaminophen 325 mg Tablet
650 mg PO Q4HPRN PRN (Reason: mild pain/[place]/temp> 100.4F) Qty: 30 0RF
Colleen
1 tab PO DAILY
Refresh P.M. Ointment
1 applic OPHTHALMIC (EYE) HS
carboxymethylcellulose sodium [Refresh] 1 % Drops, Liquid Gel
1 drp OPHTHALMIC (EYE) BID
Chloraseptic Sore Throat 6-10 mg Lozenge
1 amanda PO Q4HPRN PRN (Reason: sore throat) 30 Days Qty: 18 0RF
carbidopa-levodopa 25-100 mg Tablet
1.5 tab PO Q6 30 Days Qty: 180 0RF
magnesium L-lactate 84 mg Tablet Extended Release
84 mg PO DAILY 30 Days Qty: 30 0RF
calcium carbonate [Oyster Shell Calcium 500] 500 mg calcium (1,250 mg) Tablet
500 mg PO DAILY 30 Days Qty: 30 0RF
Ocuvite Adult 50 Plus 250 mg (90 mg-160 mg) Capsule
1 cap PO BID 30 Days Qty: 60 0RF
Referrals:
Katiuska Skelton MD [Family Provider, Family Practice]
Interventions
Interventions:
*General Assessment Last Done: 10/31/25 05:24
*Neglect/Abuse Screening Last Done: 10/31/25 04:41
*ED COVID-19 Vaccine History Last Done: 10/31/25 05:24
*ED Influenza Vaccine History Last Done: 10/31/25 05:24
[facility] Fall Risk Assessment Tool Last Done: 10/31/25 05:24
*Risk Screen - Suicide (C-SSRS) Last Done: 10/31/25 04:41
ED-Musculoskeletal Assessment Last Done: 10/31/25 05:20
ED- Neurological Assessment Last Done: 10/31/25 08:36
ED-Skin Assessment Last Done: 10/31/25 05:20
Discharge Date and Time
Print Language: LIBERIAN
[2025-10-31] MEDS: TORADOL 15 MG IV (06:34)
[2025-10-31] MEDS: TYLENOL 650 MG PO ×2 (06:35→17:27)
[2025-10-31 07:02] LABS: Hematocrit 41.9 % (37.0-47.0); Hemoglobin 14.2 g/dL (12.0-16.0); Mean Corp Hgb Conc. 33.9 g/dL (33.0-37.0); Mean Corpuscular Volume 91.9 fL (81.0-99.0); Platelet Count 224 10^3/uL (130-400); Red Cell Dist. Width 13.5 % (11.5-14.5)
[2025-10-31 07:04] LABS: ALT (SGPT) < 10 U/L (0-35); AST (SGOT) 29 U/L (14-36); Albumin 4.2 g/dl (3.5-5.0); Alkaline Phosphatase 164 U/L (38-126); Blood Urea Nitrogen 24 mg/dl (7-17); Calcium 9.9 mg/dl (8.4-10.2); Carbon Dioxide 25 mmol/L (22-30); Chloride 109 mmol/L (98-107); Estimated Creatinine Clearance 48 ml/min; Glucose 101 mg/dl (70-99); Potassium 4.2 mmol/L (3.5-5.1); Sodium 140 mmol/L (135-145); Total Protein 6.9 g/dl (6.3-8.2); eGFR > 60.00
--- NOTE | 2025-10-31 09:59 | EDCM ---
Addendum entered by Paige Matos 10/31/25 15:59:
[facility] reviewed and signed, copy left with pt.
PT recommending Acute Rehab, I called and spoke to pt's Nirmal, he would like referrals sent to [facility], pt was there in 2023 and [facility]. Referrals placed in [facility].
Addendum entered by Paige Matos 10/31/25 11:04:
Per Min MORE pt is being admitted. CM will continue to follow.
Original Note:
Received consult, reviewed chart and met with pt bedside in ED. Lives with her in [place] [address] [place]. has first floor setup.
Independent in ADLs, personal care and ambulation at baseline.
Pt is part of [facility] waiver program, Min MORE updated. Will need to be seen by hospitalist for placement.
Requested PT/OT consults, awaiting their recommendations.
Pt's went home to sleep, I will call him after pt seen by Therapy.
--- NOTE | 2025-10-31 12:01 | HPS.HSE ---
Family Physician
-
Family Physician: Katiuska Skelton MD
Chief Complaint
-
fall
History of Present Illness
85-year-old female with past medical history of Parkinson's disease, history of breast cancer, hiatal hernia came to the hospital after mechanical fall due to her loss of balance. Imaging was consistent with L4 compression fracture along with mild
displaced right inferior pubic rami fracture. Patient currently denies any chest pain, shortness of breath. Denies any fever/chills. Denies any abdominal pain, nausea, vomiting, diarrhea, constipation. Reports compliant to all her medications.
She does have history of frequent falls and ambulatory dysfunction secondary to Parkinson's.
Medical History
Past Medical History
Past Medical History: Reports Cancer (Breast) and Other (Parkinson's disease, hiatal hernia)
Past Surgical History: Reports Gynocological, Orthopedic and Other (Lumpectomy)
Social History
Tobacco: Non-smoker
Alcohol: None
Family History
Family History: Not pertinent
Allergies / Home Medications
Allergies reflects when Allergies were last updated in [employer].
Home Medications with original date entered in [employer]
Allergy/Medication List:
Allergies
Allergy/AdvReac Type Severity Reaction Status Date / Time
amoxicillin (Amoxicillin) Allergy Rash Verified 10/31/25 04:42
amoxicillin trihydrate (From Allergy Rash Verified 10/31/25 04:42
Augmentin)
clavulanic acid (From Allergy Rash Verified 10/31/25 04:42
Augmentin)
doxycycline Allergy Rash, sun Verified 10/31/25 04:42
sensitivity,
thrush,
erythromycin base Allergy Unknown Verified 10/31/25 04:42
levofloxacin Allergy Unknown Verified 10/31/25 04:42
Home Medications
cholecalciferol (vitamin D3) 25 mcg (1,000 unit) tablet (Vitamin D3) 25 mcg PO DAILY Supplement 03/22/24
omega-3 fatty acids-fish oil 684 mg-1,200 mg capsule,delayed release 1 cap PO DAILY Supplement 03/22/24
calcium carbonate (Oyster Shell Calcium 500) 500 mg PO DAILY Supplement 30 days #30 tabs 04/14/24
Colleen 1 tab PO BID Constipation 10/31/25
artificial tears ointment 1 applic ophthalmic (eye) HS Eye Condition 10/31/25
carbidopa 25 mg-levodopa 100 mg tablet 1.5 tab PO BID Neurological Condition 10/31/25
carboxymethylcellulose sodium 1 % eye liquid gel drops 1 drp ophthalmic (eye) BID Eye Condition 10/31/25
magnesium glycinate 100 mg (as glycinate) tablet 100 mg PO HS Electrolyte Repletion 10/31/25
therapeutic multivitamin 1 tab PO DAILY Supplement 10/31/25
vitamins A,C,A-xitb-hznmfy 2,148 mcg-113 mg-45 mg-17.4 mg tablet (PreserVision AREDS) 2 tab PO BID Supplement 10/31/25
Review of Systems
-
History Source: Patient
A 12 point ROS was completed and negative except as noted: Yes
Physical Exam
Vital Signs
Vital Signs
Temp Pulse Resp BP Pulse Ox
97.8 F 76 19 157/67 96
10/31/25 08:34 10/31/25 11:45 10/31/25 11:45 10/31/25 11:07 10/31/25 11:45
Physical Exam
General: Well Nourished and No Apparent Distress
HEENT: Anicteric and Moist mucous membranes
Respiratory: Clear and Non Labored Respirations; No Wheezes
Cardiac: S1/S2 and Regular Rhythm
Breast: Deferred by me
GI: Soft, Non Tender, Non Distended and Normal Bowel Sounds
Rectal: Deferred by Provider
Genito-urinary: No Garibay
Musculoskeletal: No Edema
Neuro: Awake, Alert, Oriented and AO x 3
Psych: Calm and Intact Judgment/Insight
Laboratory Results
-
10/31/25 06:43
10/31/25 06:43
Laboratory Results
Total Bilirubin 0.8 mg/dl (0.2-1.3) 10/31/25 06:43
AST 29 U/L (14-36) 10/31/25 06:43
ALT < 10 U/L (0-35) 10/31/25 06:43
Alkaline Phosphatase 164 U/L (38-126) H 10/31/25 06:43
Impression/Plan
-
Fall with ambulatory dysfunction likely secondary to Parkinson's disease
Mechanical fall
CT consistent with unchanged chronic L4 compression deformity, mild L2 superior endplate compression fracture
CT also shows mildly displaced fracture of right inferior pubic rami
PT/OT, case reviewer evaluation for placement
History of Parkinson's disease
Continue with levodopa/carbidopa
History of breast cancer status postlumpectomy
Chronic ambulatory dysfunction
DVT prophylaxis
Lovenox
Full code
[2025-10-31] MEDS: SINEMET 25-100 1.5 TABLET PO ×2 (12:24→21:35)
[2025-10-31] MEDS: LOVENOX 40 MG SC (17:27)
[2025-10-31] MEDS: OCUVITE SOFTGEL 1 CAP PO (21:33)
[2025-10-31] MEDS: REFRESH EYE DROPS (PF) 1 DROPS OPHTH (21:34)
[2025-10-31] MEDS: MORPHINE SULFATE 1 MG IV (21:55)
[2025-11-01] MEDS: SINEMET 25-100 1.5 TABLET PO ×4 (01:48→16:40)
[2025-11-01] MEDS: TORADOL 10 MG IV (02:01)
[2025-11-01] MEDS: TYLENOL 650 MG PO ×2 (02:08→07:32)
[2025-11-01 06:00] VITALS: BMI 23.1
[2025-11-01 07:10] VITALS: BP 134/68
[2025-11-01] MEDS: THERAGRAN 1 TABLET PO (07:32)
[2025-11-01] MEDS: OSCAL CAL 500 500 MG PO (07:32)
[2025-11-01] MEDS: VITAMIN D3 (cholecalciferol) 25 MCG PO (07:32)
[2025-11-01] MEDS: MAGNESIUM OXIDE 200 MG PO (07:33)
[2025-11-01] MEDS: REFRESH EYE DROPS (PF) 1 DROPS OPHTH ×2 (07:33→19:39)
[2025-11-01] MEDS: OCUVITE SOFTGEL 1 CAP PO ×2 (07:37→19:39)
[2025-11-01 08:05] LABS: Hematocrit 39.1 % (37.0-47.0); Hemoglobin 13.5 g/dL (12.0-16.0); Mean Corp Hgb Conc. 34.5 g/dL (33.0-37.0); Mean Corpuscular Volume 91.4 fL (81.0-99.0); Nucleated Red Blood Cells % 0 %; Platelet Count 202 10^3/uL (130-400); Red Cell Dist. Width 13.5 % (11.5-14.5)
[2025-11-01 08:47] LABS: Blood Urea Nitrogen 20 mg/dl (7-17); Calcium 9.3 mg/dl (8.4-10.2); Carbon Dioxide 23 mmol/L (22-30); Chloride 108 mmol/L (98-107); Estimated Creatinine Clearance 48 ml/min; Glucose 84 mg/dl (70-99); Potassium 4.0 mmol/L (3.5-5.1); Sodium 138 mmol/L (135-145); eGFR > 60.00
[2025-11-01] MEDS: ULTRAM 50 MG PO ×2 (11:01→16:40)
[2025-11-01] MEDS: MIRALAX 17 GRAMS PO (11:01)
[2025-11-01 11:43] VITALS: BP 136/71
--- NOTE | 2025-11-01 13:23 | W.PN.HOSP.TC ---
Today's Communication/Plan
-
Monitor vital signs see plan
Pain control
Continue with tramadol for pain, morphine only for severe
Discharge planning, nurse outreach case manager aware
Assessment / Plan
Assessment / Plan
General: Well Nourished and No Apparent Distress
HEENT: Anicteric and Moist mucous membranes
Respiratory: Clear and Non Labored Respirations; No Wheezes
Cardiac: S1/S2 and Regular Rhythm
GI: Soft, Non Tender, Non Distended and Normal Bowel Sounds
Musculoskeletal: No Edema
Neuro: Awake, Alert, Oriented and AO x 3
Psych: Calm and Intact Judgment/Insight
Fall with ambulatory dysfunction likely secondary to Parkinson's disease
Mechanical fall
CT consistent with unchanged chronic L4 compression deformity, mild L2 superior endplate compression fracture
CT also shows mildly displaced fracture of right inferior pubic rami
PT/OT, nurse outreach case manager evaluation for placement. Discussed with nurse outreach case manager. Plan for rehab 11/02
pain control with tramadol
morphine only if uncontrolled
History of Parkinson's disease
Continue with levodopa/carbidopa
History of breast cancer status postlumpectomy
Chronic ambulatory dysfunction
DVT prophylaxis
Lovenox
Full code
Anticipated Discharge: Within 24 hours
Subjective/Interval History
-
Date of Service: November 01, 2025
Has some pain with movement
Objective Data
-
Labs:
Laboratory Results
11/01/25
07:19
WBC 8.9
Hgb 13.5
Hct 39.1
Plt Count 202
Sodium 138
Potassium 4.0
Chloride 108 H
Carbon Dioxide 23
BUN 20 H
Creatinine 0.7
Glucose 84
Calcium 9.3
Vital Signs:
Vital Signs
Temp Pulse Resp BP Pulse Ox
97.4 F 68 18 134/68 95
11/01/25 07:10 11/01/25 07:10 11/01/25 07:10 11/01/25 07:10 11/01/25 07:10
I&O
10/31/25 11/01/25 11/02/25
06:59 06:59 06:59
Intake Total 240 / 240
Balance 240 / 240
[2025-11-01] MEDS: TYLENOL PO (13:59)
--- NOTE | 2025-11-01 14:57 | CM ---
CM reviewed chart, patient seen bedside with .
CM discussed [facility] unable to accept patient, [facility] can offer patient a bed tomorrow.
Patient and agreeable. Patient will need ambulance transport, forms on chart.
CM will confirm with maximus Bland at [place] [facility] tomorrow prior to d/c.
Plan; [facility], likely tomorrow 11/02
[2025-11-01 15:05] VITALS: BP 113/52
[2025-11-01] MEDS: LOVENOX 40 MG SC (16:39)
[2025-11-01] MEDS: TYLENOL 1000 MG PO (19:39)
[2025-11-01 23:22] VITALS: BP 102/54
[2025-11-02 06:00] VITALS: BMI 23.8
[2025-11-02 07:04] VITALS: BP 139/63
[2025-11-02] MEDS: SINEMET 25-100 1.5 TABLET PO (08:33)
[2025-11-02] MEDS: MAGNESIUM OXIDE 200 MG PO (08:34)
[2025-11-02] MEDS: OSCAL CAL 500 500 MG PO (08:34)
[2025-11-02] MEDS: VITAMIN D3 (cholecalciferol) 25 MCG PO (08:34)
[2025-11-02] MEDS: REFRESH EYE DROPS (PF) 1 DROPS OPHTH (08:35)
[2025-11-02] MEDS: MIRALAX PO (08:35)
[2025-11-02] MEDS: OCUVITE SOFTGEL 1 CAP PO (08:35)
[2025-11-02] MEDS: TYLENOL 1000 MG PO (08:35)
[2025-11-02] MEDS: THERAGRAN 1 TABLET PO (08:35)
[2025-11-02] MEDS: ULTRAM 50 MG PO ×2 (08:42→16:13)
[2025-11-02 08:44] LABS: Hematocrit 40.1 % (37.0-47.0); Hemoglobin 13.8 g/dL (12.0-16.0); Mean Corp Hgb Conc. 34.4 g/dL (33.0-37.0); Mean Corpuscular Volume 93.7 fL (81.0-99.0); Nucleated Red Blood Cells % 0 %; Platelet Count 228 10^3/uL (130-400); Red Cell Dist. Width 13.6 % (11.5-14.5)
[2025-11-02 09:22] LABS: Blood Urea Nitrogen 25 mg/dl (7-17); Calcium 9.5 mg/dl (8.4-10.2); Carbon Dioxide 26 mmol/L (22-30); Chloride 104 mmol/L (98-107); Estimated Creatinine Clearance 48 ml/min; Glucose 83 mg/dl (70-99); Potassium 4.3 mmol/L (3.5-5.1); Sodium 137 mmol/L (135-145); eGFR > 60.00
--- NOTE | 2025-11-02 10:05 | W.PN.HOSP.TC ---
Today's Communication/Plan
-
monitor vitals
see plan
pain control
dc today to rehab
time of discharge 36 minutes
Assessment / Plan
Assessment / Plan
General: Well Nourished and No Apparent Distress
HEENT: Anicteric and Moist mucous membranes
Respiratory: Clear and Non Labored Respirations; No Wheezes
Cardiac: S1/S2 and Regular Rhythm
GI: Soft, Non Tender, Non Distended and Normal Bowel Sounds
Musculoskeletal: No Edema
Neuro: Awake, Alert, Oriented and AO x 3
Psych: Calm and Intact Judgment/Insight
Fall with ambulatory dysfunction likely secondary to Parkinson's disease
Mechanical fall
CT consistent with unchanged chronic L4 compression deformity, mild L2 superior endplate compression fracture
CT also shows mildly displaced fracture of right inferior pubic rami
PT/OT, oil field caser evaluation for placement. Discussed with oil field caser. Plan for rehab 11/02
pain control with tramadol
morphine only if uncontrolled
History of Parkinson's disease
Continue with levodopa/carbidopa
History of breast cancer status postlumpectomy
Chronic ambulatory dysfunction
DVT prophylaxis
Lovenox
Full code
Anticipated Discharge: Today
Subjective/Interval History
-
Date of Service: November 02, 2025
has some pain
Objective Data
-
Labs:
Laboratory Results
11/02/25
07:49
WBC 10.1
Hgb 13.8
Hct 40.1
Plt Count 228
Sodium 137
Potassium 4.3
Chloride 104
Carbon Dioxide 26
BUN 25 H
Creatinine 0.7
Glucose 83
Calcium 9.5
Vital Signs:
Vital Signs
Temp Pulse Resp BP Pulse Ox
98.0 F 80 16 139/63 94
11/02/25 07:04 11/02/25 07:04 11/02/25 07:04 11/02/25 07:04 11/02/25 07:04
I&O
11/01/25 11/02/25 11/03/25
06:59 06:59 06:59
Intake Total 240 / 240
Balance 240 / 240
--- NOTE | 2025-11-02 10:07 | W.DCSUMMARY ---
Discharge Summary
Discharge Data
Date of Admission: 10/31/25
Date of Discharge: 11/02/25
-
Pending Results: No
Hospital Course
85-year-old female with past ministry of Parkinson's disease, breast cancer status post lobectomy, ambulatory dysfunction chronic came to the hospital after a fall with worsening ambulatory dysfunction secondary to Parkinson's disease. CT scan was
done which showed a chronic L4 compression deformity, mild L2 superior endplate compression fracture. CT scan also showed mildly displaced fracture of right inferior pubic rami. Patient was seen by physical therapy and was recommended rehab. Once
patient rehab was located, she was then discharged with instructions to follow-up with all her physicians outpatient.
Discharge Plan
-
Patient Disposition: Acute Rehab Facility
Discharge Diagnosis/Procedures: Fall with ambulatory dysfunction likely secondary to Parkinson's disease
Mechanical fall
mild L2 superior endplate compression fracture
mildly displaced fracture of right inferior pubic rami
Condition: Fair
Diet: As tolerated and Low Cholesterol
Activity: With assistance and As tolerated
Driving Restrictions: Not until seen by your Dr
Activity Restrictions/Additional Instructions:
Repeat pelvic x-ray in 2 weeks
DO NOT GO OVER 4G tylenol in 24hrs
Referrals:
Katiuska Skelton MD [Family Provider, Family Practice] - in less than 1 week
Prescriptions:
New
acetaminophen [Tylenol Extra Strength] 500 mg Tablet
1,000 mg PO BID Qty: 0 0RF
acetaminophen 325 mg Tablet
650 mg PO Q4HPRN PRN (Reason: mild pain/[place]/temp> 100.4F) Qty: 0 0RF
polyethylene glycol 3350 17 gram Powder In Packet
17 g PO DAILY Qty: 0 0RF
carbidopa-levodopa 25-100 mg Tablet
1.5 tab PO BID Qty: 0 0RF
tramadol 50 mg Tablet
50 mg PO Q6HPRN PRN (Reason: moderate to severe pain) Qty: 10 0RF
Continued
cholecalciferol (vitamin D3) [Vitamin D3] 25 mcg (1,000 unit) Tablet
25 mcg PO DAILY
omega-3 fatty acids-fish oil 684-1,200 mg Capsule,Delayed Release(Dr/Ec)
1 cap PO DAILY
Colleen
1 tab PO BID
artificial tears ointment Ointment
1 applic OPHTHALMIC (EYE) HS
carboxymethylcellulose sodium 1 % Drops, Liquid Gel
1 drp OPHTHALMIC (EYE) BID
therapeutic multivitamin Tablet
1 tab PO DAILY
carbidopa-levodopa 25-100 mg Tablet
1.5 tab PO BID
magnesium glycinate 100 mg Tablet
100 mg PO HS
PreserVision AREDS 2,148 mcg-113 mg-45 mg-17.4mg Tablet
2 tab PO BID
calcium carbonate [Oyster Shell Calcium 500] 500 mg calcium (1,250 mg) Tablet
500 mg PO DAILY 30 Days Qty: 30 0RF
Discharge Orders:
Discharge Patient (As Directed); Ordered 11/02/25
Ordered By: Seun Bustillo
Discharge Date and Time
Discharge Date/Time: 11/02/25 19:29
Print Language: LATVIAN
--- NOTE | 2025-11-02 12:05 | CM ---
CM reviewed chart, patient for d.c today to [facility].
Patient scheduled for 5:00 p.m. ambulance transport- update to [facility].
Phone call to patients , [facility], to update with transport time.
CM will continue to follow for d/c needs.
Plan; [facility], 5:00 p.m. ambulance transport
[facility]
Report: [phone]
[2025-11-02 15:00] VITALS: BP 135/55
[2025-11-02] MEDS: LOVENOX SC (19:01)
== END 2025-11-02 19:29 ==
LOC: 4 WEST ACU 12:18
PROVIDERS: Physician Assistant; ADMITTING PHYSICIAN Internal Medicine; EMERGENCY PHYSICIAN Emergency Medicine; FAMILY PHYSICIAN Student in an Organized Health Care Education/Training Program
DX: S32.028A Other fracture of second lumbar vertebra, initial encounter for closed fracture (principal); M54.50 Low back pain, unspecified; G20.A1 Parkinson's disease without dyskinesia, without mention of fluctuations; Z85.3 Personal history of malignant neoplasm of breast; W19.XXXA Unspecified fall, initial encounter; R26.2 Difficulty in walking, not elsewhere classified; S32.591A Other specified fracture of right pubis, initial encounter for closed fracture
CPT/HCPCS: 72131; 72192; 80048; 80053; 85025; 85027; 96374; 97116; 99285; G0378